=== PATIENT | male | born 1965 | race Caucasian/White ===

== ENCOUNTER → 2019-04-19 11:29 | Day surgery (SDC) | payer OTHER ==
[~2019-04-19 11:29] MED LIST: Acetaminophen TAB* 325 MG PO PRN; Buffered Lidocaine 1% SYRIN* 1 ML/SYRINGE INTRADERM ONE; Bupivacaine 0.5%* 50 ML MDV VIAL ONE; DiMENhydriNATE IV* 50 MG/ML VIAL IV PUSH PRN; EPINEPHRINE 1 MG/ML 1 ML VIAL ONE; HYDROmorphone INJ1* 1 MG/ML SYRINGE IV PRN; Ketorolac INJ* 30 MG/ML 1 ML VIAL IV PRN; Ketorolac INJ* 30 MG/ML 1 ML VIAL ONE; Lactated Ringers 1000 ML Bag* 1,000 ML IV SCH; Lidocaine 1% MPF ** 5 ML VIAL ONE; Metoclopramide IV* 5 MG/ML 2 ML VIAL IV SLOW PU ONE; Metoclopramide IV* 5 MG/ML 2 ML VIAL ONE; Midazolam* 1 MG/ML 2 ML VIAL (2 MG) ONE; Naloxone* 0.4 MG/ML 1 ML VIAL IV PRN; Propofol* 10 MG/ML 20 ML BTL ONE; ROPIVACAINE 5 MG/ML 30 ML BTL (0.5%) ONE; Rocuronium* 10 MG/ML VIAL ONE; Succinylcholine* 20 MG/ML 10 ML VIAL ONE; ceFAZolin 2 GM in NS PREMIX(*) 2 GM/100 ML BAG IVPB ONE; fentaNYL* 50 MCG/ML 2 ML VIAL (100 MCG VIAL) IV PRN; fentaNYL* 50 MCG/ML 2 ML VIAL (100 MCG VIAL) ONE; oxyCODONE/Acetamin 5/325 MG* TAB ONE; oxyCODONE/Acetamin 5/325 MG* TAB PO PRN
[2019-04-19 17:53] VITALS: BP 106/76
--- NOTE | 2019-04-20 08:06 | OP ---
DATE OF OPERATION: 04/19/19 - [facility] DATE OF : 69 SURGEON: Sinan Roberts MD LEAD ELECTRICIAN: JOSE Perez. A physician research lab assistant was required for the length of the procedure for assistance with patient positioning, instrumentation , and closure. ANESTHESIOLOGIST: Dr. Sinan Kirkpatrick. ANESTHESIA: General anesthesia, regional interscalene block anesthesia. PRE-OP DIAGNOSES: 1. Left shoulder rotator cuff tendinitis and possible partial-thickness tear. 2. Left shoulder acromioclavicular joint osteoarthritis. 3. Left shoulder subacromial bursitis and impingement. 4. Left shoulder posterior labrum tear. 5. Left shoulder possible superior labral tear, possible biceps tendinosis. POST-OP DIAGNOSES: 1. Left shoulder rotator cuff tendinitis, low-grade partial-thickness tear, undersurface anterior supraspinatus tendon. 2. Left shoulder acromioclavicular joint osteoarthritis. 3. Left shoulder subacromial bursitis and impingement. 4. Left shoulder posterior labrum tear. 5. Left shoulder superior labral tear, biceps tendinosis. OPERATIVE PROCEDURES: 1. Left shoulder arthroscopic rotator cuff repair with Regeneten biologic patch. 2. Left shoulder arthroscopic subacromial decompression. 3. Left shoulder arthroscopic distal clavicle resection. 4. Left shoulder arthroscopic limited debridement including release of long- head biceps tendon, debridement of posterior labrum, and debridement of significant subacromial bursitis. ANTIBIOTICS: Ancef 2 g IV. IV FLUIDS: See Anesthesia note. PATIENT POSITIONING: Lateral decubitus. SKIN TO SKIN TIME: 63 minutes. SPECIMEN: None. IMPLANTS: Alonso [employer]hew Regeneten biologic patch, size medium. COMPLICATIONS: None. ESTIMATED BLOOD LOSS: None. 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 The patient did not respond to full spectrum of nonoperative treatment and opted for surgery. We discussed evaluation and treatment of rotator cuff as needed. We discussed evaluation and treatment of biceps and superior labrum and posterior labrum. The patient preferred biceps tenotomy or release rather than biceps tenodesis. I certainly offered him both treatments. Discussed risks and potential complications of surgery. DESCRIPTION OF PROCEDURE: In preoperative holding, the patient signed a written consent. Operative extremity was marked in preop holding. The patient was taken back to the operating room and placed supine on the operating room table. He was sedated and intubated. The patient was converted to the lateral decubitus position. All bony prominences were padded. Beanbag was hardened. Longitudinal traction was placed with 12 or 13 pounds of longitudinal traction and appropriate amount of left shoulder abduction and forward flexion. The left shoulder was examined under anesthesia prior to making the patient in the lateral decubitus position, after a brief many time-out. The patient's passive range of motion in the left shoulder was 188 degrees of forward flexion , 95 degrees of external rotation, and 70 degrees of internal rotation. Certainly, no manipulation under anesthesia was required. In the lateral decubitus position, after the patient was prepped and draped, formal surgical timeout was performed. Spinal needle was inserted into the glenohumeral joint from posterior and 30 mL of normal saline was infused. I then established a posterior glenohumeral joint portal under direct visualization. I started diagnostic arthroscopy. No loose bodies. No significant articular cartilage injury. There was certainly some hyperemia and tendinosis along the long head biceps tendon and evident superior and posterior labral tears. There was some undersurface injury to the anterior supraspinatus. I made an anterior glenohumeral joint portal under direct visualization. I introduced an arthroscopic shaver. I introduced a probe and probed the superior labrum. There was a large unstable tear. I introduced arthroscopic scissors and released the biceps near to origin , long head. I smoothed down the superior labrum with an arthroscopic shaver. I also visualized the posterior labrum from both posterior and anterior and smoothed the posterior labrum out with the arthroscopic shaver. I next looked to the anterior aspect of the supraspinatus. There was some clear undersurface fraying or tearing. I smoothed some of the undersurface down with an arthroscopic shaver. I marked that area with a spinal needle, inserted from outside the shoulder. I removed fluid and instruments from the glenohumeral joint and moved to the subacromial space. I made anterior and posterior subacromial portals. I later made lateral and posterolateral portals under direct visualization. The patient's subacromial space was notable for significant bursitis, much more than the average bursitis. This took some time to debride this bursitis with an arthroscopic shaver. Notable too was a significant hook of the anterior aspect of the acromion with the minimal distance between rotator cuff and anterior acromion. I noted where the spinal needle was inserted into the supraspinatus. There was no bursal-sided tearing in that location. I probed that and visualized it gently. Given the undersurface tearing, I decided to place a biologic patch. First, however, I did the subacromial decompression. Using an arthroscopic bur, I smoothed out, flattened out the anterior aspect of the undersurface of the acromion. This provided much more room for clearance for the rotator cuff under the acromion. I next placed a superolateral portal for staple insertion and I placed my Regeneten biologic patch from lateral. PLLA luis antonio were used to keep it in place. The patch was stable to motion and probing. I next moved to the AC joint. I debrided synovitic tissue with a cautery device and then I removed 8 mm of the distal end of the clavicle with an arthroscopic bur. I reexamined the patch, it was stable. I applied one more PLLA staple. I closed the skin incisions with [id number] in 12 stitches using nylon 3-0 and nylon 4-0 suture. Xeroform, 4x4s, ABDs, foam tape. Sling and abduction pillow. Cooling unit. The patient was awakened and extubated and transferred to the PACU. DISPOSITION: Wound care instructions were provided. Sling to start for 2 to 3 weeks postoperatively. The patient will start physical therapy immediately next week. Percocet as needed for pain control. There was some question of the patient having a DVT in the distal forearm before. This did not quite make sense to be a DVT. Given that this is upper extremity surgery, we will hold off on anticoagulation. The patient will follow up with me in the clinic 10 to 14 days postoperatively. [id number]/[facility] #: [id number] MARLEEN
== END | disposition home or self-care (01) ==
LOC: OR 11:29
PROVIDERS: ATTEND Orthopaedic Surgery
DX: S46.012A Strain of muscle(s) and tendon(s) of the rotator cuff of left shoulder, initial encounter (principal); S43.492A Other sprain of left shoulder joint, initial encounter; M19.012 Primary osteoarthritis, left shoulder; M75.22 Bicipital tendinitis, left shoulder; M75.42 Impingement syndrome of left shoulder; W00.2XXA Other fall from one level to another due to ice and snow, initial encounter; Y92.9 Unspecified place or not applicable; G89.18 Other acute postprocedural pain; E11.9 Type 2 diabetes mellitus without complications; Z79.84 Long term (current) use of oral hypoglycemic drugs; I10 Essential (primary) hypertension; E78.5 Hyperlipidemia, unspecified; G47.33 Obstructive sleep apnea (adult) (pediatric); M19.90 Unspecified osteoarthritis, unspecified site; J45.909 Unspecified asthma, uncomplicated
CPT/HCPCS: A9270-GY; C1713; J0330; J0690; J1885; J2250; J2704; J2765; J2795; J3010; J3490

== ENCOUNTER 2019-06-03 13:27 | Emergency (ER) | payer OTHER ==
--- OUTSIDE RECORDS SUMMARY | 2019-06-03 13:32 | XMS REPORT | Continuity of Care Document ---
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 Onset: 07/21/2017 Social History Type Date Description Comments Sex Unknown ETOH Use Denies alcohol use Tobacco Use Start: Unknown End: Patient is a former smoker Unknown Smoking Status Reviewed: 06/01/19 Patient is a former smoker Exercise Type/Frequency Exercises sporadically Allergies, Adverse Reactions, Alerts Active Allergies Reaction Severity Comments Date Tape 07/21/2017 Erythromycin 07/21/2017 Ciprofloxacin 07/21/2017 Metronidazole 07/21/2017 Meloxicam 09/08/2017 Adhesive 03/20/2019 Medications Active Medications SIG Qnty Indications Ordering Provider Date Tramadol HCL take 1 tab by 30tabs Sinan Gao 06/01/2019 50mg Tablets mouth every six MD Alejandra hours as needed for pain Arthrotec Sinan Gao 03/20/2019 50-0.2mg MD Alejandra Tablets DR Webb 1 by mouth every Unknown 300mg Tablets day Atorvastatin Calcium take 1 tablet Unknown 20mg daily Tablets Vitamin D3 1 by mouth every Unknown 5000Unit day Capsules Metformin HCL 1 by mouth twice Unknown 1000mg a day Tablets Sildenafil Citrate 1 by mouth 30 Unknown 20mg min before Tablets Lantus Solostar Unknown Humalog Kwikpen 10 units before Unknown meals 100Unit/ML Solution Pen-Inject History Medications Oxycodone-Acetaminophen 1-2 tab by mouth 42tabs Sinan Gao 04/19/2019 - 5-325mg Tablets every 4-6 hours MD Alejandra 06/01/2019 as needed for pain. Do not exceed 6 in 1 day. Hold for sedation. Medications Administered in Office Medication SIG Qnty Indications Ordering Provider Date Depomedrol 40MG Sinan Roberts MD 12/05/2018 Injection Depomedrol 40MG Sinan Roberts MD 10/04/2018 Injection Immunizations Description No Information Available Vital Signs Date Vital Result Comment 06/01/2019 10:12am Height 75 inches 6'3" Heart Rate 91 /min BP Systolic 132 mmHg BP Diastolic 88 mmHg Respiratory Rate 18 /min Body Temperature 98.6 F Pain Level 4 05/03/2019 2:03pm Height 75 inches 6'3" Weight 280.00 lb Heart Rate 100 /min BP Systolic 136 mmHg BP Diastolic 80 mmHg Respiratory Rate 20 /min Body Temperature 98.0 F Pain Level 8 O2 % BldC Oximetry 93 % BMI (Body Mass Index) 35.0 kg/m2 Results Test Acquired Date Facility Test Result H/L Range Note Laboratory test 04/19/2019 [facility] Point of Care 119 mg/dL High 70-100 [address] [place] [address] [phone] 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: 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 Procedures Date Code Description Status 04/19/2019 30618 Arthroscopy Shoulder,W/Rotator Cuff Repair Completed 04/19/2019 37098 Arthroscopy Shoulder,W/Rotator Cuff Repair Completed 04/19/2019 97274 Arthroscopy Shoulder,W/Rotator Cuff Repair Completed 04/19/2019 09461 Arthroscopy,Shoulder Decompression Of Subacromial Space Completed W/Acromio 04/19/2019 89424 Arthroscopy,Shoulder Decompression Of Subacromial Space Completed W/Acromio 04/19/2019 83318 Arthroscopy,Shoulder Decompression Of Subacromial Space Completed W/Acromio 04/19/2019 93186 Arthroscopy,Shoulder,Distal Claviculectomy Incl Dist Completed Articular SR 04/19/2019 25002 Arthroscopy,Shoulder,Distal Claviculectomy Incl Dist Completed Articular SR 04/19/2019 78290 Arthroscopy,Shoulder,Distal Claviculectomy Incl Dist Completed Articular SR 12/05/2018 51087 Inject/Drain Joint/Bursa Major W/O US Completed Medical Devices Description No Information Available Encounters Type Date Location Provider Dx Diagnosis Office Visit 03/20/2019 Keyona Gilmore75.82 Other shoulder 9:45a at Paul Roberts MD lesions, left shoulder M19.012 Primary osteoarthritis, left shoulder M75.52 Bursitis of left shoulder M75.42 Impingement syndrome of left shoulder Office Visit 02/07/2019 2:15p Keyona Cisneros.51 Bursitis of at Sae Roberts MD right shoulder M75.52 Bursitis of left shoulder M75.82 Other shoulder lesions, left shoulder M19.012 Primary osteoarthritis, left shoulder Office Visit 01/16/2019 1:45p Keyona Cisneros.52 Bursitis of at Sae Roberts MD left shoulder M75.51 Bursitis of right shoulder M25.512 Pain in left shoulder Office Visit 12/05/2018 1:00p Keyona Cisneros.51 Bursitis of at Sae Roberts MD right shoulder M75.52 Bursitis of left shoulder Assessments Date Code Description Provider 06/01/2019 M19.012 Primary osteoarthritis, left shoulder Sinan Roberts MD 06/01/2019 M75.52 Bursitis of left shoulder Sinan Roberts MD 06/01/2019 M75.42 Impingement syndrome of left shoulder Sinan Roberts MD 06/01/2019 S46.012D Strain of muscle(s) and tendon(s) of the Sinan Roberts MD rotator cuff of left shoulder, subsequent encounter 05/03/2019 M19.012 Primary osteoarthritis, left shoulder Sinan Roberts MD 05/03/2019 M75.52 Bursitis of left shoulder Sinan Roberts MD 05/03/2019 M75.42 Impingement syndrome of left shoulder Sinan Roberts MD 05/03/2019 S46.012D Strain of muscle(s) and tendon(s) of the iSnan Roberts MD rotator cuff of left shoulder, subsequent encounter 05/03/2019 Z47.89 Encounter for other orthopedic aftercare Sinan Roberts MD 04/19/2019 M75.82 Other shoulder lesions, left shoulder Sinan Roberts MD 04/19/2019 M75.112 Incomplete rotator cuff tear or rupture of JOSE Perez left shoulder, not specified as traumatic 04/19/2019 M75.112 Incomplete rotator cuff tear or rupture of Sinan Roberts MD left shoulder, not specified as traumatic 04/19/2019 M75.82 Other shoulder lesions, left shoulder JOSE Perez 04/19/2019 M19.012 Primary osteoarthritis, left shoulder Sinan Roberts MD 04/19/2019 M19.012 Primary osteoarthritis, left shoulder Serena Sun PA 04/19/2019 M75.52 Bursitis of left shoulder Sinan Roberts MD 04/19/2019 M75.52 Bursitis of left shoulder JOSE Perez 04/19/2019 M75.42 Impingement syndrome of left shoulder Sinan Roberts MD 04/19/2019 M75.42 Impingement syndrome of left shoulder JOSE Perez 03/20/2019 M75.82 Other shoulder lesions, left shoulder Sinan Roberts MD 03/20/2019 M19.012 Primary osteoarthritis, left shoulder Sinan Roberts MD 03/20/2019 M75.52 Bursitis of left shoulder Sinan Roberts MD 03/20/2019 M75.42 Impingement syndrome of left shoulder Sinan Roberts MD 02/07/2019 M75.51 Bursitis of right shoulder Sinan Roberts MD 02/07/2019 M75.52 Bursitis of left shoulder Sinan Roberts MD 02/07/2019 M75.82 Other shoulder lesions, left shoulder Sinan Roberts MD 02/07/2019 M19.012 Primary osteoarthritis, left shoulder Sinan Roberts MD 01/16/2019 M75.52 Bursitis of left shoulder Sinan Roberts MD 01/16/2019 M75.51 Bursitis of right shoulder Sinan Roberts MD 01/16/2019 M25.512 Pain in left shoulder Sinan Roberts MD 12/05/2018 M75.51 Bursitis of right shoulder Sinan Roberts MD 12/05/2018 M75.52 Bursitis of left shoulder Sinan Roberts MD Plan of Treatment Future Appointment(s):07/13/2019 10:15 am - Sinan Roberts MD at [facility]06/01/2019 - Sinan De Guzmanohue, MDM19.012 Primary osteoarthritis, left shoulderNew Therapy:Physical TherapyFollow up:Follow up: 6 uqagnW40.52 Bursitis of left ohgqeymlU39.42 Impingement syndrome of left daalzaqdO90.012D Strain of muscle(s) and tendon(s) of the rotator cuff of left shoulder, subsequent encounter Functional Status Description No Information Available Mental Status Description No Information Available Referrals Description No Information Available
--- OUTSIDE RECORDS SUMMARY | 2019-06-03 13:32 | XMS REPORT | Continuity of Care Document ---
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 Onset: 07/21/2017 Social History Type Date Description Comments Sex Unknown ETOH Use Denies alcohol use Tobacco Use Start: Unknown End: Patient is a former smoker Unknown Smoking Status Reviewed: 03/20/19 Patient is a former smoker Exercise Type/Frequency Exercises sporadically Allergies, Adverse Reactions, Alerts Active Allergies Reaction Severity Comments Date Tape 07/21/2017 Erythromycin 07/21/2017 Ciprofloxacin 07/21/2017 Metronidazole 07/21/2017 Meloxicam 09/08/2017 Adhesive 03/20/2019 Medications Active Medications SIG Qnty Indications Ordering Provider Date Arthrotec Sinan Gao 03/20/2019 50-0.2mg Tablets MD DR Jon Roberts 1 by mouth every Unknown 300mg Tablets day Atorvastatin Calcium take 1 tablet Unknown 20mg daily Tablets Vitamin D3 1 by mouth every Unknown 5000Unit day Capsules Metformin HCL 1 by mouth twice Unknown 1000mg a day Tablets Sildenafil Citrate 1 by mouth 30 Unknown 20mg min before Tablets Lantus Solostar Unknown Humalog Kwikpen 10 units before Unknown 100Unit/ML meals Solution Pen-Inject Medications Administered in Office Medication SIG Qnty Indications Ordering Provider Date Depomedrol 40MG Sinan Roberts MD 12/05/2018 Injection Depomedrol 40MG Sinan Roberts MD 10/04/2018 Injection Immunizations Description No Information Available Vital Signs Date Vital Result Comment 03/20/2019 10:03am Height 75 inches 6'3" Weight 283.00 lb Heart Rate 72 /min BP Systolic Sitting 140 mmHg BP Diastolic Sitting 84 mmHg Respiratory Rate 20 /min Body Temperature 97.3 F O2 % BldC Oximetry 97 % BMI (Body Mass Index) 35.4 kg/m2 02/07/2019 2:09pm Height 75 inches 6'3" Heart Rate 97 /min BP Systolic 120 mmHg BP Diastolic 84 mmHg Respiratory Rate 18 /min Body Temperature 98.1 F Pain Level 5 Results Description No Information Available Procedures Date Code Description Status 12/05/2018 84032 Inject/Drain Joint/Bursa Major W/O US Completed Medical Devices Description No Information Available Encounters Type Date Location Provider Dx Diagnosis Office Visit 03/20/2019 Keyona Cisneros.82 Other shoulder 9:45a at Paul Roberts MD lesions, left shoulder M19.012 Primary osteoarthritis, left shoulder M75.52 Bursitis of left shoulder M75.42 Impingement syndrome of left shoulder Office Visit 02/07/2019 2:15p Keyona Gao M75.51 Bursitis of at Sae Roberts MD right shoulder M75.52 Bursitis of left shoulder M75.82 Other shoulder lesions, left shoulder M19.012 Primary osteoarthritis, left shoulder Office Visit 01/16/2019 1:45p Keyona Gao M75.52 Bursitis of at Sae Roberts MD left shoulder M75.51 Bursitis of right shoulder M25.512 Pain in left shoulder Office Visit 12/05/2018 1:00p Keyona Cisneros.51 Bursitis of at Sae Roberts MD right shoulder M75.52 Bursitis of left shoulder Assessments Date Code Description Provider 03/20/2019 MChaz.82 Other shoulder lesions, left shoulder Sinan Roberts [...] Sinan Roberts MD Plan of Treatment Future Appointment(s):04/19/2019 7:30 am - JOSE Perez at [facility] at [id number]/19/2019 7:30 am - Sinan Roberts MD at [facility] at Qjiptr7503/20/2019 - Sinan Roberts, MDM75.82 Other shoulder lesions, left shoulderFollow up:Follow up: [place] [facility] patient typically[place]M19.012 Primary osteoarthritis, left pudthozqL58.52 Bursitis of left gdjbtxnyO22.42 Impingement syndrome of left shoulder Functional Status Description No Information Available Mental Status Description No Information Available Referrals Description No Information Available
--- OUTSIDE RECORDS SUMMARY | 2019-06-03 13:32 | XMS REPORT | Continuity of Care Document ---
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 Onset: 07/21/2017 Social History Type Date Description Comments Sex Unknown ETOH Use Denies alcohol use Tobacco Use Start: Unknown End: Patient is a former smoker Unknown Smoking Status Reviewed: 05/03/19 Patient is a former smoker Exercise Type/Frequency Exercises sporadically Allergies, Adverse Reactions, Alerts Active Allergies Reaction Severity Comments Date Tape 07/21/2017 Erythromycin 07/21/2017 Ciprofloxacin 07/21/2017 Metronidazole 07/21/2017 Meloxicam 09/08/2017 Adhesive 03/20/2019 Medications Active Medications SIG Qnty Indications Ordering Provider Date Oxycodone-Acetaminophe 1-2 tab by mouth 42tabs Sinan Gao 04/19/2019 n every 4-6 hours MD Alejandra 5-325mg Tablets as needed for pain. Do not exceed 6 in 1 day. Hold for sedation. Arthrotec Sinan Gao 03/20/2019 50-0.2mg MD Alejandra [...] units before Unknown meals 100Unit/ML Solution Pen-Inject Medications Administered in Office Medication SIG Qnty Indications Ordering Provider Date Depomedrol 40MG Sinan Roberts MD 12/05/2018 Injection Depomedrol 40MG Sinan Roberts MD 10/04/2018 Injection Immunizations Description No Information Available Vital Signs Date Vital Result Comment 05/03/2019 2:03pm Height 75 inches 6'3" Weight 280.00 lb Heart Rate 100 /min BP Systolic 136 mmHg BP Diastolic 80 mmHg Respiratory Rate 20 /min Body Temperature 98.0 F Pain Level 8 O2 % BldC Oximetry 93 % BMI (Body Mass Index) 35.0 kg/m2 03/20/2019 10:03am Height 75 inches 6'3" Weight 283.00 lb Heart Rate 72 /min BP Systolic Sitting 140 mmHg BP Diastolic Sitting 84 mmHg Respiratory Rate 20 /min Body Temperature 97.3 F O2 % BldC Oximetry 97 % BMI (Body Mass Index) 35.4 kg/m2 Results Test Acquired Date Facility Test Result H/L Range Note Laboratory test 04/19/2019 [facility] Point of Care 119 mg/dL High 70-100 [address] [place] [id number] [phone] Insurance Coordinator: [id number] Procedures Date Code Description Status 12/05/2018 34405 Inject/Drain Joint/Bursa Major W/O US Completed Medical Devices Description No Information Available Encounters Type Date Location Provider Dx Diagnosis [facility]:45a at Paul Roberts MD lesions, left shoulder M19.012 Primary osteoarthritis, left shoulder M75.52 Bursitis of left shoulder M75.42 Impingement syndrome of left shoulder Office Visit 02/07/2019 2:15p Keyona Cisneros.51 Bursitis of at Sae Roberts MD right shoulder M75.52 Bursitis of left shoulder M75.82 Other shoulder lesions, left shoulder M19.012 Primary osteoarthritis, left shoulder Office Visit 01/16/2019 1:45p Keyona Gilmore75.52 Bursitis of at Sae Roberts MD left shoulder M75.51 Bursitis of right shoulder M25.512 Pain in left shoulder Office Visit 12/05/2018 1:00p [facility] Sinan Gao M75.51 Bursitis of at Sae Roberts MD right shoulder M75.52 Bursitis of left shoulder Assessments Date Code Description Provider 05/03/2019 M19.012 Primary osteoarthritis, left shoulder Sinan Roberts MD 05/03/2019 M75.52 Bursitis of left shoulder Sinan Roberts MD 05/03/2019 M75.42 Impingement syndrome of left shoulder Sinan Roberts MD 05/03/2019 S46.012D Strain of muscle(s) and tendon(s) of the Sinan Roberts MD rotator cuff of left shoulder, subsequent encounter 03/20/2019 M75.82 Other shoulder lesions, left shoulder [...] Sinan Roberts MD Plan of Treatment Future Appointment(s):06/01/2019 10:00 am - Sinan Roberts MD at [facility] at G[place]1205/03/2019 - Sinan Roberts MDM19.012 Primary osteoarthritis, left shoulderFollow up:Follow up: 4 qioymD86.52 Bursitis of left bctxkdpuK42.42 Impingement syndrome of left hacnnwnyL46.012D Strain of muscle(s) and tendon(s) of the rotator cuff of left shoulder, subsequent encounter Functional Status Description No Information Available Mental Status Description No Information Available Referrals Description No Information Available
--- NOTE | 2019-06-03 13:41 | UC ---
Eye Complaint HPI - HPI Summary HPI Summary: 54 yo male presents with RIGHT eye complaint. He tells me that yesterday he noticed some mild redness to his right eye. Today woke up with yellow crusts and drainage with increased redness. Eye feels itchy. He denies injury, recent illness, fever, sinus symptoms. No glasses or contacts. No change in vision - History of Current Complaint Stated Complaint: RIGHT EYE COMPLAINT Time Seen by Provider: 06/03/19 13:41 Hx Obtained From: Patient Onset/Duration: Sudden Onset Severity Initially: Mild Severity Currently: Mild Pain Intensity: 3 Pain Scale Used: 0-10 Numeric - Allergies/Home Medications Allergies/Adverse Reactions: Allergies Allergy/AdvReac Type Severity Reaction Status Date / Time adhesive tape Allergy Rash Verified 06/03/19 13:52 ciprofloxacin [From Cipro] Allergy Itching Verified 06/03/19 13:52 meloxicam Allergy ITCHY Verified 06/03/19 13:52 metronidazole Allergy HYPER AND Verified 06/03/19 13:52 RAPID HR erythromycin base AdvReac RECTAL Verified 06/03/19 13:52 BLEEDING Home Medications: Home Medications traMADol TAB* [Ultram*] 50 mg PO Q6HR PRN 06/03/19 [History Confirmed 06/03/19] PMH/Surg Hx/FS Hx/Imm Hx Endocrine History: Diabetes, Dyslipidemia - Surgical History Surgical History: Yes Surgery Procedure, Year, and Place: CHOLECYSTECTOMY. VASECTOMY. GASTRIC BYPASS. Rt KNEE - ARTHROSCOPIC - - Family History Known Family History: Positive: Hypertension, Diabetes - Social History Lives: With Family Alcohol Use: None Substance Use Type: Excessive Caffeine Substance Use Comment - Amount & Last Used: 11-30 [facility] DAILY Smoking Status (MU): Former Smoker Amount Used/How Often: 2-3 CIGARETTES PER DAY X WHEN STRESSED ON AND OFF 2-3 YRS Have You Smoked in the Last Year: No When Did the Patient Quit Smoking/Using Tobacco: Review of Systems All Other Systems Reviewed And Are Negative: No Constitutional: Positive: Negative Skin: Positive: Negative Eyes: Positive: Drainage, Eye Redness ENT: Positive: Negative Respiratory: Positive: Negative Cardiovascular: Positive: Negative Neurological: Positive: Negative Psychological: Positive: Negative Physical Exam - Summary Physical Exam Summary: GENERAL: WDWN. No pain distress. SKIN: No rashes, sores, lesions, or open wounds. HEENT: Head: AT/NC Eyes: EOM intact. PERRLA. RIGHT EYE: Mild scleral injection. Conjunctiva with mild erythema and inflammation. Mild yellow discharge. LEFT EYE : Conjunctiva clear without inflammation or discharge. No FBs appreciated Nose: NTTP maxillary and frontal sinus. NECK: Supple. Nontender. No lymphadenopathy. CHEST: No accessory muscle use. Breathing comfortably and in no distress. CV: Pulses intact. Cap refill <2seconds NEURO: Alert. PSYCH: Age appropriate behavior. Triage Information Reviewed: Yes Vital Signs: Vital Signs: Temp Pulse Resp BP Pulse Ox 97.3 F 90 18 113/70 97 06/03/19 13:41 06/03/19 13:41 06/03/19 13:41 06/03/19 13:41 06/03/19 13:41 Vital Signs Reviewed: Yes Eye Complaint Course/Dx - Course Course Of Treatment: Right conjunctivitis - Differential Dx/Diagnosis Provider Diagnosis: Conjunctivitis Discharge ED - Sign-Out/Discharge Documenting (check all that apply): Patient Departure All imaging exams completed and their final reports reviewed: No Studies - Discharge Plan Condition: Stable Disposition: HOME Prescriptions: Polymyx/Trimethoprim OPTH* [Polytrim OPHTH*] 1 drop RIGHT EYE QID 5 Days #1 btl Patient Education Materials: Conjunctivitis (ED) Referrals: Luke Blair PA [Primary Care Provider] - Additional Instructions: If you develop a fever, shortness of breath, chest pain, new or worsening symptoms - please call your PCP or go to the ED immediately. - Billing Disposition and Condition Condition: STABLE Disposition: Home - Attestation Statements Provider Attestation: I was available for consult. This patient was seen by the SAMUEL. The patient was not presented to, seen by, or examined by me. -Yaa
[2019-06-03 13:51] VITALS: BP 113/70
== END 2019-06-03 14:07 | disposition home or self-care (01) ==
LOC: UCCORT 13:27
DX: H10.9 Unspecified conjunctivitis (principal); Z87.891 Personal history of nicotine dependence; E11.9 Type 2 diabetes mellitus without complications; Z91.09 Other allergy status, other than to drugs and biological substances; Z88.1 Allergy status to other antibiotic agents; Z88.6 Allergy status to analgesic agent
CPT/HCPCS: 99212; G0463

== ENCOUNTER 2019-08-09 16:55 | Emergency (ER) | payer OTHER ==
[2019-08-09 17:15] VITALS: BP 137/69
--- NOTE | 2019-08-09 18:06 | UC ---
Respiratory Complaint HPI - HPI Summary HPI Summary: 54 yo diabetic diagnosed with influenza last week; presented with malaise, cough and fever. He has completed Tamiflu with some improvement, but he has persistent cough to the point of vomiting, not responding to codeine cough suppressant. He has some chest tightness. Past hx of seasonal asthma and hx of pneumonia. - History of Current Complaint Chief Complaint: UCRespiratory Stated Complaint: COUGH/HEADACHE Time Seen by Provider: 08/09/19 18:04 Hx Obtained From: Patient Onset/Duration: Gradual Onset, Lasting Days Timing: Constant Pain Intensity: 0 Character: Cough: Nonproductive Aggravating Factors: Exertion Alleviating Factors: OTC Meds Associated Signs And Symptoms: Positive: Dyspnea - Risk Factors Pulmonary Embolism Risk Factors: Negative Cardiac Risk Factors: Negative Pseudomonas Risk Factors: Negative Tuberculosis Risk Factors: Negative - Allergies/Home Medications Allergies/Adverse Reactions: Allergies Allergy/AdvReac Type Severity Reaction Status Date / Time adhesive tape Allergy Rash Verified 08/09/19 17:13 ciprofloxacin [From Cipro] Allergy Itching Verified 08/09/19 17:13 meloxicam Allergy ITCHY Verified 08/09/19 17:13 metronidazole Allergy HYPER AND Verified 08/09/19 17:13 RAPID HR erythromycin base AdvReac RECTAL Verified 08/09/19 17:13 BLEEDING Home Medications: Home Medications Atorvastatin* [Lipitor*] 20 mg PO BEDTIME 04/12/19 [History Confirmed 08/09/19] Canagliflozin (NF) [Invokana (NF)] 300 mg PO QAM 04/12/19 [History Confirmed ] Cholecalciferol (Vitamin D3) [D 5000] 5,000 unit PO QAM 04/12/19 [History Confirmed 08/09/19] Insulin GLARGINE(*) [Lantus(*)] 55 units SUBCUT QAM 04/12/19 [History Confirmed 08/09/19] Insulin LISPRO* [HumaLOG*] 1 dose SUBCUT TID 04/12/19 [History Confirmed ] LevoCETirizine TAB (NF) [Xyzal TAB (NF)] 5 mg PO QAM 04/12/19 [History Confirmed 08/09/19] Naproxen Sodium [Aleve] 1 - 2 cap PO BID 04/12/19 [History Confirmed 08/09/19] metFORMIN* [Glucophage 1000 MG TAB *] 1,000 mg PO BID 04/12/19 [History Confirmed 08/09/19] Albuterol HFA INHALER* [Ventolin HFA Inhaler*] 2 puff INH Q6H PRN #1 mdi [Rx] Amoxicillin/Clavulanate TAB* [Augmentin TAB 875*] 875 mg PO BID #20 tab [Rx] PMH/Surg Hx/FS Hx/Imm Hx Endocrine History: Diabetes - Surgical History Surgical History: Yes Surgery Procedure, Year, and Place: CHOLECYSTECTOMY. VASECTOMY. GASTRIC BYPASS. Rt KNEE - ARTHROSCOPIC - . L shoulder- 03/2019 - Family History Known Family History: Positive: Hypertension, Diabetes - Social History Occupation: Employed Full-time Alcohol Use: None Substance Use Type: Excessive Caffeine Substance Use Comment - Amount & Last Used: 6-12 [employer] DAILY Smoking Status (MU): Former Smoker Amount Used/How Often: 2-3 CIGARETTES PER DAY X WHEN STRESSED ON AND OFF 2-3 YRS Have You Smoked in the Last Year: No When Did the Patient Quit Smoking/Using Tobacco: - Immunization History Most Recent Tetanus Shot: 2018 Review of Systems All Other Systems Reviewed And Are Negative: Yes Constitutional: Positive: Fatigue Skin: Positive: Negative Eyes: Positive: Negative ENT: Positive: Sore Throat, Sinus Congestion Respiratory: Positive: Shortness Of Breath, Cough Cardiovascular: Negative: Palpitations, Chest Pain Gastrointestinal: Positive: Negative Genitourinary: Positive: Negative Motor: Positive: Negative Neurovascular: Positive: Negative Musculoskeletal: Positive: Negative Neurological/Mental Status: Positive: Headache Psychological: Positive: Negative Is Patient Immunocompromised?: No Physical Exam Triage Information Reviewed: Yes Appearance: Ill-Appearing, Obese Vital Signs: Initial Vital Signs Temp 97.0 F 08/09/19 17:09 Pulse 92 08/09/19 17:09 Resp 20 08/09/19 17:09 BP 137/69 08/09/19 17:09 Pulse Ox 97 08/09/19 17:09 Eyes: Positive: Conjunctiva Clear ENT: Positive: Pharynx normal - past uvulectomy Neck: Positive: Supple, Nontender, No Lymphadenopathy Respiratory: Positive: No respiratory distress, No accessory muscle use, Decreased breath sounds, Expiration - prolonged expiratory phase Cardiovascular: Positive: RRR, No Murmur Musculoskeletal Exam: Normal Neurological Exam: Normal Psychological Exam: Normal Skin Exam: Normal Respiratory Course/Dx - Course Course Of Treatment: discussed duration of flu, but given hx of diabetes, with tendency to pneumonia , will tx augmentin and albuterol - Differential Dx/Diagnosis Differential Diagnosis/HQI/PQRI: Asthma, Influenza, Lower Resp Infection Provider Diagnosis: Bronchitis Discharge ED - Sign-Out/Discharge Documenting (check all that apply): Patient Departure All imaging exams completed and their final reports reviewed: No Studies - Discharge Plan Condition: Stable Disposition: HOME Prescriptions: Albuterol HFA INHALER* [Ventolin HFA Inhaler*] 2 puff INH Q6H PRN #1 mdi PRN Reason: Cough Amoxicillin/Clavulanate TAB* [Augmentin TAB 875*] 875 mg PO BID #20 tab Patient Education Materials: Acute Bronchitis (ED) Referrals: Luke Blair PA [Primary Care Provider] - Additional Instructions: begin treatment with augmentin for treatment of symptoms post flu which suggest that you are at risk of developing a lung infection. Use of albuterol can help to decrease the cough and is worth a trial given your history of asthma. If you develop fever or worsening shortness of breath, please go to the emergency room for assessment. - Billing Disposition and Condition Condition: STABLE Disposition: Home
== END 2019-08-09 18:33 | disposition home or self-care (01) ==
LOC: UCCORT 16:55
DX: J40 Bronchitis, not specified as acute or chronic (principal); J02.9 Acute pharyngitis, unspecified; R51 Headache; R09.89 Other specified symptoms and signs involving the circulatory and respiratory systems; E11.9 Type 2 diabetes mellitus without complications; Z87.891 Personal history of nicotine dependence; Z88.1 Allergy status to other antibiotic agents; Z79.4 Long term (current) use of insulin; Z91.09 Other allergy status, other than to drugs and biological substances; Z88.6 Allergy status to analgesic agent
CPT/HCPCS: 99212; G0463